=== PATIENT | female | born 1930 | race Caucasian/White ===

== ENCOUNTER 2017-03-15 09:07 | Emergency (ER) | payer MEDICARE ==
[2017-03-15 09:53] LABS: BASOPHIL# 0.1 X 10^3uL (0.0-0.1); BASOPHILS 2.7 % (0.0-2.0); EOSINOPHILS 1.1 % (0.0-6.0); EOSINOPHILS# 0.1 X 10^3uL (0.0-0.4); HEMATOCRIT 35.6 % (36.0-48.0); HEMOGLOBIN 11.9 g/dL (12.0-16.0); LYMPHOCYTES 16.6 % (20.0-40.0); LYMPHOCYTES# 0.8 X 10^3uL (0.8-3.8); MEAN CELL VOLUME 98.8 fL (80.0-100.0); MEAN CORPUS. HGB CONCENTRATION 33.3 g/dL (32.0-36.0); MEAN PLATELET VOLUME 8.2 fL (7.4-10.4); MONOCYTES 4.1 % (2.0-10.0); MONOCYTES# 0.2 X 10^3uL (0.2-1.0); NEUTROPHILS 75.5 % (54.0-75.0); NEUTROPHILS# 3.9 X 10^3uL (2.6-6.7); PLATELET COUNT 205 X 10^3uL (130-440); RED CELL DISTRIBUTION WIDTH 14.7 % (11.5-14.5); WHITE BLOOD COUNT 5.1 X 10^3uL (3.9-10.7)
[2017-03-15 10:08] LABS: BLOOD UREA NITROGEN 16 mg/dL (7-17); CALCIUM 9.3 mg/dL (8.4-10.2); CHLORIDE 97 mmol/L (98-107); GLUCOSE 93 mg/dL (70-100); POTASSIUM 3.9 mmol/L (3.5-5.1); SODIUM 137 mmol/L (137-145)
[2017-03-15 10:22] LABS: TROPONIN I < 0.012 ng/mL (0.00-0.034)
[2017-03-15 11:53] LABS: URINE MUCUS NONE SEEN (Up to 25%); URINE RBC NONE SEEN (0-5/hpf)
[2017-03-15 11:59] LABS: URINE APPEARANCE CLEAR; URINE COLOR DARK YELLOW; URINE GLUCOSE NORMAL (NEGATIVE); URINE KETONE 10mg/dL (1+) (NEGATIVE); URINE LEUKOCYTE ESTERASE 25 WBC/uL (1+) (NEGATIVE); URINE NITRITE NEGATIVE (NEGATIVE); URINE PROTEIN 10mg/dL (trace) (NEG - TRACE); URINE SPECIFIC GRAVITY 1.025 (0.001-1.035); URINE UROBILINOGEN 0.2mg/dL (Normal) (NEG-1mg/dL)
[2017-03-15 12:00] LABS: URINE BACTERIA NONE SEEN (<10/hpf); URINE BILIRUBIN NEGATIVE (NEGATIVE); URINE BLOOD NEGATIVE (NEGATIVE); URINE WBC 0-4/hpf (0-4/hpf)
--- NOTE | 2017-03-15 12:19 | ER PHYSICIAN DOCUMENTATION ---
Physician Documentation [facility] Name:Tati Sumner Age:86 yrs Sex:Female :1930 Arrival Date:03/15/2017 Time:09:07 Bed4 Private MD:Vivien Guardado ED, Chris Disposition: 03/15/17 11:25 Discharged to Home/Self Care. Impression: Bladder Infection (UTI), Dizziness - Vertigo, Dehydration. - Condition is Good. - Discharge Instructions: BLADDER INFECTION, Female (Adult), DEHYDRATION (6y-Adult), DIZZINESS, Unk Cause. - Prescriptions for Macrobid 100 mg Oral Capsule - take 100 milligram by ORAL route every 12 hours for 10 days; 20 capsule. - Medical Reconciliation form form. - Follow up: Vivien Guardado DO; When: 4- 6 days; Reason: Recheck today's complaints, Continuance of care. - Problem is new. - Symptoms have improved. - Notes: Drink 2 quarts of water every day Eat three meals per day.... Take Macrobid 100mg by mouth every 12 hours for 10 days. Follow up with Dr. Sandeep Guardado, [facility] , in 4 days for recheck. HPI: 03/15 09:27 This 86 yrs old Female presents to ER via Private Vehicle with complaints of cd Dizziness, weakness and near-syncope since yesterday. 09:27 The patient presents with feeling faint, generalized weakness, lightheadedness. Onset: cd The symptom(s)/episode began/occurred yesterday. Context: occurred at home, occurred while the patient was sitting, just prior to the episode the patient experienced lightheadedness, PAtient had a near-syncopal episode yesterday while sitting. She became unresponsive, but her caught her while she slid. The ambulance was called, but did not feel transport to the hospital was necessary. Afterward, she had a bought of diarrhea. She has had no melena, vertigo, chest pain, SOB, fever, chills. She was in bed yesterday and has had very little to drink or eat. She has no history of TIA or CVA. No history of hyponatremis or UTI's.. Associated signs and symptoms: Pertinent positives: near-syncope, Pertinent negatives: abdominal pain, ataxia, chest pain, confusion, diaphoresis, head injury, headache, nausea, numbness, palpitations, shortness of breath, vomiting. Severity of symptoms: At their worst the symptoms were moderate in the emergency department the symptoms are unchanged. The patient has experienced a previous episode, yesterday. Historical: - Allergies: Aspirin; - Home Meds: 1. levothyroxine oral 2. Methotrexate (Anti-Rheumatic) Oral 3. donepezil oral 4. Prednisone Oral 5. Folic Acid Oral 6. Lisinopril Oral 7. atorvastatin oral 8. Namenda oral 9. citalopram oral 10. Potassium Chloride Oral 11. glucosamine-chondroitin oral 12. Fish Oil oral 13. tylenol 14. Aleve Oral 15. oxygen - PMHx: DEPRESSION; ARTHRITIS; HYPOTHYROIDISM; HYPERTENSION; - Tetanus: < 10 years. - Ebola Screening: : Patient negative for fever greater than or equal to 101.5 degrees Fahrenheit, and additional compatible Ebola Virus Disease symptoms. Patient denies exposure to infectious person. Patient denies travel to an Ebola-affected area in the 21 days before illness onset. No symptoms or risks identified at this time. . - Immunization history: Pneumococcal vaccine is up to date, Flu Vaccine < 1 year. - Social history: Smoking status: Patient states was never smoker of tobacco. ROS: 09:32 Eyes: Negative for injury, pain, redness, discharge, blurry vision and loss of vision. cd ENT: Negative for injury, pain, epistaxis and discharge. Neck: Negative for injury, pain, stiffness and swelling. Cardiovascular: Negative for chest pain, palpitations, edema and pleuritic pain. 09:32 Respiratory: Negative for shortness of breath, dyspnea on exertion, cough, sputum cd production, wheezing, hemoptysis and pleuritic chest pain. Back: Negative for injury, pain or muscle spasms. : Negative for injury, bleeding, discharge, dysuria, frequency, urgency and swelling. MS/Extremity: Negative for injury, deformity, edema, calf tenderness, pain or coldness. 09:32 Skin: Negative for injury, rash, itching and discoloration. 09:32 Constitutional: Positive for malaise, poor PO intake, Negative for chills, fever. 09:32 Abdomen/GI: Positive for diarrhea, anorexia, Negative for abdominal pain, nausea, vomiting, abdominal distension, hematemesis, black/tarry stool, rectal bleeding. 09:32 Neuro: Positive for dizziness, near syncope, weakness, Negative for altered mental status, headache, numbness, seizure activity, tingling. 09:32 All other systems are negative. Exam: Head/Face: Normocephalic, atraumatic. Eyes: Pupils equal round and reactive to light, extra-ocular motions intact. Lids and lashes normal. Conjunctiva and sclera are non-icteric and not injected. Cornea within normal limits. Periorbital areas with no swelling, redness, or edema. ENT: Nares patent. No nasal discharge, no septal abnormalities noted. Tympanic membranes are normal and external auditory canals are clear. Oropharynx with no redness, swelling, or masses, exudates, or evidence of obstruction, uvula midline. Mucous membranes dry Neck: Trachea midline, no thyromegaly or masses palpated, and no cervical lymphadenopathy. Supple, full range of motion without nuchal rigidity, or vertebral point tenderness. No Meningismus. Chest/axilla: Normal chest wall appearance and motion. Nontender with no deformity. No lesions are appreciated. Cardiovascular: Regular rate and rhythm with a normal S1 and S2. No gallops, murmurs, or rubs. Normal PMI, no JVD. No pulse deficits. 09:33 Respiratory: Lungs have equal breath sounds bilaterally, clear to auscultation and cd percussion. No rales, rhonchi or wheezes noted. No increased work of breathing, no retractions or nasal flaring. Back: No spinal tenderness. No costovertebral tenderness. Full range of motion. Skin: Warm, dry with normal turgor. Normal color with no rashes, no lesions, and no evidence of cellulitis. MS/ Extremity: Pulses equal, no cyanosis. Neurovascular intact. Full, normal range of motion. 09:33 Neuro: Awake and alert, GCS 15, oriented to person, place, time, and situation. Cranial nerves II-XII grossly intact. Motor strength 5/5 in all extremities. Sensory grossly intact. Cerebellar exam normal. Normal gait. 09:33 Constitutional: The patient appears alert, awake, non-diaphoretic, non-toxic, well developed, well nourished. 09:33 Abdomen/GI: Inspection: abdomen appears normal, Bowel sounds: normal, Palpation: abdomen is soft and non-tender. 09:33 Neuro: Orientation: is normal, to person, place & time. Cerebellar function: normal finger to nose testing, heel to dye testing is normal, Gait: not tested. 10:17 Abdomen/GI: Rectal exam: rectal tone normal, Stool: brown, guaiac negative, mass, is cd not appreciated, the exam is chaperoned by the nurse. Vital Signs: 09:07 BP 147 / 55; Pulse 66; Resp 16; Temp 97.7; Pulse Ox 84% on R/A; Weight 83.91 kg; Height ke 5 ft. 4 in. (162.56 cm); Pain 0/10; 10:01 BP 147 / 64 (auto/); ke 10:05 Pulse 62 MON; Resp 18; Pulse Ox 99% ; Pain 0/10; ke 10:30 BP 148 / 59 (auto/); ke 10:30 Pulse 65 MON; Resp 14; Pulse Ox 100% ; ke 11:18 BP 158 / 70 (auto/); ke 11:20 Pulse 62 MON; Resp 12; Pulse Ox 100% ; ke 09:07 Body Mass Index 31.75 (83.91 kg, 162.56 cm) ke 09:07 Placed on 2 L NC O2 - sats increased immediately to 98% ke [place] Coma Score: 09:33 Eye Response: spontaneous(4). Verbal Response: oriented(5). Motor Response: obeys cd commands(6). Total: 15. MDM: 09:25 Patient medically screened. cd 09:34 Differential diagnosis: cardiac arrhythmia, CVA, generalized weakness, hypovolemia, cd idiopathic dizziness, near-syncope, TIA. Data reviewed: vital signs, nurses notes, and as a result, I will continue to observe the patient, administer IV fluids, NS bolus, NS maintenence. Data interpreted: Pulse oximetry: on room air is 92 %. Interpretation: normal. 10:12 EKG attached lc 10:18 ECG:. cd 11:00 Counseling: I had a detailed discussion with the patient and/or guardian regarding: the cd historical points, exam findings, and any diagnostic results supporting the discharge/admit diagnosis, lab results, the need for outpatient follow up, for a recheck, with the patient's primary care provider, to return to the emergency department if symptoms worsen or persist or if there are any questions or concerns that arise at home. Response to treatment: the patient's symptoms have markedly improved after treatment, the patient's condition has returned to base line, the patient is now symptom free, and as a result, I will discharge patient. 03/15 10:05 Order name: CBC AUTO DIF, MDIF/RMOR IF IND; Complete Time: 10: [facility] 03/15 10:12 Interpretation: Normal Except: HEMOGLOBIN 11.9; HEMATOCRIT 35.6; NEUTROPHILS 75.5; cd Anemia. 03/15 10:23 Order name: BASIC METABOLIC PANEL; Complete Time: 10: [facility] 03/15 10:28 Interpretation: Normal. 03/15 10:23 Order name: TROPONIN I; Complete Time: : [facility] 03/15 10:28 Interpretation: Normal. 03/15 12:01 Order name: UA W/ MICRO -CULTURE IF IND; Complete Time: 15:19 [facility] 03/15 15:19 Interpretation: Normal Except: URINE SPECIFIC GRAVITY 1.025; URINE LEUKOCYTE ESTERASE cd 25 WBC/uL (1+); URINE KETONE 10mg/dL (1+); URINE WBC 0-4/hpf; Dehydration. 03/16 07:23 Order name: URINE CULTURE [facility] 03/15 09:26 Order name: 12-lead EKG; Complete Time: 10:03 03/15 09:26 Order name: Continuous Cardiac Monitoring; Complete Time: 10: 03/15 09:26 Order name: I & O; Complete Time: 10: 03/15 09:26 Order name: NPO; Complete Time: 10: 03/15 09:26 Order name: Pulse Ox Continuous; Complete Time: 10: 03/15 09:26 Order name: Accucheck; Complete Time: 10: 03/15 10:11 Order name: Oxygen; Complete Time: 10:11 ke EC:58 Rate is 59 beats/min. Rhythm is regular. W[place] interval is prolonged. QRS interval is cd normal. QT interval is normal. Q waves are Present in leads V1, V2. T waves are Normal. No ST changes noted. Clinical impression: NST at 59/minute, Poor Anterior R-Wave Progression, First Degree AV Block, Probable Old Anteroseptal [place], No acute Ischemic changes. Interpreted by me. Dispensed Medications: 09:50 Drug: NS 0.9% 500 ml; Route: IV; Rate: bolus; Site: left antecubital; ke 12:17 Follow up: Rate change 150 ml/hr; IV Status: Infusion continued; IV Intake: 500ml maxine Point of Care Testing: Blood Glucose: 09:30 Blood Glucose: 90 mg/dL; ke Urine Dip: 10:10 pH: 7.0; ; Specific [place]: 1.025; Ketones: Trace; Glucose: Negative; Protein: Trace; ke Leukocytes: Positive; Nitrite: Negative ; Blood: Negative; Bilirubin: Small (+) ; Urobilinogen: Normal Ranges: Critical Glucose Levels:Adult <50 mg/dl or >400 mg/dl <40 mg/dl or >180 mg/dl Signatures: Valencia Gunderson RN RN lc Daley, Chris, MD MD cd Evens, Kerry, RN RN ke
--- NOTE | 2017-03-15 12:19 | ER NURSING DOCUMENTATION ---
Nurse's Notes [facility] Name:Tati Sumner Age:86 yrs Sex:Female :1930 Arrival Date:03/15/2017 Time:09:07 Bed4 Private MD:Vivien Guardado Diagnosis:Bladder Infection (UTI);Dizziness - Vertigo;Dehydration Presentation: 03/15 09:11 Acuity: CHERELLE 3 lc 09:19 Presenting complaint: Patient states: Dizzy with movement - episodic since yesterday. ke She did have a possibly syncopal with incontinence event yesterday and EMS was called, and pt. refused transport. Pt. slept most of the day yesterday and hasn't eaten or drank much fluid since then. This morning she felt fine when she got up, but dizziness has reoccurred this morning. Transition of care: Home. Notified ED Physician of patient's arrival and CC Dr. Jacobo notified. 09:19 Method Of Arrival: Private Vehicle Triage Assessment: 10:04 General: Appears comfortable, well developed, well nourished, Behavior is cooperative, ke drowsy, pleasant. Pain: Denies pain. EENT: No deficits noted. Neuro: Level of Consciousness is awake, alert, Oriented to person, place, time, Moves all extremities. Gait is unsteady, Speech is normal, Facial symmetry appears normal. Cardiovascular: Capillary refill < 3 seconds Heart tones S1 S2 present Edema is 1+ to left foot and right foot. Respiratory: Airway is patent Trachea midline Respiratory effort is even, unlabored, Respiratory pattern is regular, symmetrical, Breath sounds are clear bilaterally. GI: Abdomen is flat, non- distended Bowel sounds present X 4 quads. Abd is soft and non tender X 4 quads. : No deficits noted. Derm: Skin is intact, is fragile, with poor turgor Skin is dry, Skin is pale, Skin temperature is warm. Musculoskeletal: Circulation, motion, and sensation intact Capillary refill is brisk. Historical: - Allergies: Aspirin; - Home Meds: 1. levothyroxine oral 2. Methotrexate (Anti-Rheumatic) Oral 3. donepezil oral 4. Prednisone Oral 5. Folic Acid Oral 6. Lisinopril Oral 7. atorvastatin oral 8. Namenda oral 9. citalopram oral 10. Potassium Chloride Oral 11. glucosamine-chondroitin oral 12. Fish Oil oral 13. tylenol 14. Aleve Oral 15. oxygen - PMHx: DEPRESSION; ARTHRITIS; HYPOTHYROIDISM; HYPERTENSION; - Tetanus: < 10 years. - Ebola Screening: : Patient negative for fever greater than or equal to 101.5 degrees Fahrenheit, and additional compatible Ebola Virus Disease symptoms. Patient denies exposure to infectious person. Patient denies travel to an Ebola-affected area in the 21 days before illness onset. No symptoms or risks identified at this time. . - Immunization history: Pneumococcal vaccine is up to date, Flu Vaccine < 1 year. - Social history: Smoking status: Patient states was never smoker of tobacco. Screenin:07 Infectious Disease Risk None. Abuse screen: Denies threats or abuse. Denies injuries ke from another. Nutritional screening: No deficits noted. Assessment: 10:07 See Triage Assessment done by same RN. ke 11:00 Reassessment: Pt. resting quietly - feeling better overall. Color improved.. ke 11:27 Reassessment: Pt. assisted to bedside commode and voided. Still feeling slightly dizzy, ke but states she feels fine otherwise.. Vital Signs: 09:07 BP 147 / 55; Pulse 66; Resp 16; Temp 97.7; Pulse Ox 84% on R/A; Weight 83.91 kg; Height ke 5 ft. 4 in. (162.56 cm); Pain 0/10; 10:01 BP 147 / 64 (auto/); ke 10:05 Pulse 62 MON; Resp 18; Pulse Ox 99% ; Pain 0/10; ke 10:30 BP 148 / 59 (auto/); ke 10:30 Pulse 65 MON; Resp 14; Pulse Ox 100% ; ke 11:18 BP 158 / 70 (auto/); ke 11:20 Pulse 62 MON; Resp 12; Pulse Ox 100% ; ke 09:07 Body Mass Index 31.75 (83.91 kg, 162.56 cm) ke 09:07 Placed on 2 L NC O2 - sats increased immediately to 98% ke [place] Coma Score: 09:33 Eye Response: spontaneous(4). Verbal Response: oriented(5). Motor Response: obeys cd commands(6). Total: 15. ED Course: 09:09 Patient arrived in ED. ds 09:10 Vivien Guardado DO is Private Physician. ds 09:10 Oxygen Oxygen administration via nasal cannula @ 2L/min. ke 09:11 Triage completed. 09:15 Notified ED Physician of patient's arrival and chief complaint. Dr. Jacobo notified. ke 09:19 Francisca Cleaning, RN is Primary Nurse. ke 09:25 Sebastian Jacobo MD is Attending Physician. cd 10:07 Valuables Given to family. Patient has correct armband on for positive identification. ke Placed in gown. Bed in low position. Call light in reach. Side rails up X2. Adult w/ patient. 10:08 Inserted peripheral IV: 20 gauge in left antecubital area and blood collected. Missed ke attempts: 20 gauge X 1 in right antecubital area, Bleeding controlled, band aid applied, catheter tip intact. 10:09 Thermoregulation: Warm blankets applied to pt. for comfort. ke 10:10 Labs drawn. (by ED staff). EKG done. (by ED staff). Reviewed by Sebastian Jacobo MD. ke 10:12 EKG attached 11:24 Vivien Guardado DO is Referral Physician. cd Administered Medications: 09:50 Drug: NS 0.9% 500 ml; Route: IV; Rate: bolus; Site: left antecubital; ke 12:17 Follow up: Rate change 150 ml/hr; IV Status: Infusion continued; IV Intake: 500ml ke Point of Care Testing: Blood Glucose: 09:30 Blood Glucose: 90 mg/dL; ke Urine Dip: 10:10 pH: 7.0; ; Specific [place]: 1.025; Ketones: Trace; Glucose: Negative; Protein: Trace; ke Leukocytes: Positive; Nitrite: Negative ; Blood: Negative; Bilirubin: Small (+) ; Urobilinogen: Normal Ranges: Intake: 12:17 IV: 500ml; Total: 500ml. ke 12:17 IV: 700ml (NS); Total: 1200ml. ke Output: 12:17 Urine: 150ml (Voided); Total: 150ml. ke Outcome: 11:25 Discharge ordered by . cd 12:00 Discharged to home via wheelchair. ke 12:00 Condition: improved 12:00 Discharge instructions given to patient, significant other, Instructed on discharge instructions, follow up and referral plans. medication usage, Demonstrated understanding of instructions, Prescriptions given X 1. 12:00 IV D/Hemal 12:18 Patient left the ED. maxine 03/16 09:21 Discharge F/U Call: Spoke with: patient. Are you having any pain? no. Have you filled lp your prescriptions? yes. Signatures: Valencia Gunderson, LULY RN Celina Breen RN RN lp Srot, Angeline, Reg Reg Sebastian Martin MD MD cd Evens, Kerry, RN RN ke
== END 2017-03-15 12:18 | disposition home or self-care (01) ==
LOC: ER 09:07
DX: N39.0 Urinary tract infection, site not specified (principal); R42 Dizziness and giddiness; E86.0 Dehydration; R53.81 Other malaise; R19.7 Diarrhea, unspecified; R53.83 Other fatigue; R53.1 Weakness; I10 Essential (primary) hypertension; Z79.899 Other long term (current) drug therapy
CPT/HCPCS: 80048; 81001; 84484; 85025; 87086; 93005; 96360; 96361; 99285